=== PATIENT | female | born 2005 | race Two or more races ===

== ENCOUNTER 2024-08-10 21:00 | Inpatient (IN) | payer OTHER ==
[2024-08-10 22:05] VITALS: BMI 16.2
[2024-08-10] MEDS ORDERED: IBUPROFEN 400 MG TABLET (FP) PO PRN (22:24)
[2024-08-10] MEDS ORDERED: ACETAMINOPHEN 325 MG TABLET (FP) PO PRN (22:24)
[2024-08-10] MEDS ORDERED: LOPERAMIDE HCL 2 MG CAPSULE PO PRN (22:24)
[2024-08-10] MEDS ORDERED: NALOXONE (NARCAN) HCL 4 MG/0.1 ML SPRAY NS PRN (22:24)
[2024-08-10] MEDS ORDERED: BISMUTH SUBSALICYLATE 524 MG/30 ML PO PRN (22:24)
[2024-08-10] MEDS ORDERED: POLYETHYLENE GLYCOL (HEALTHYLAX) 3350 17 GM PACKET PO PRN (22:24)
[2024-08-10] MEDS ORDERED: MAG HYDROX/AL HYDROX/SIMETH 30 ML UNIT-DOSE CUP PO PRN (22:24)
[2024-08-10] MEDS ORDERED: guaiFENesin 600 MG TABLET.ER (FP) PO PRN (22:24)
[2024-08-10] MEDS ORDERED: BENZOCAINE/MENTHOL (CHLORASEPTIC ) LOZENGE MM PRN (22:24)
[2024-08-10] MEDS ORDERED: NICOTINE POLACRILEX 2 MG GUM BUC PRN (22:24)
[2024-08-10] MEDS ORDERED: DICYCLOMINE HCL 10 MG CAPSULE PO PRN (22:24)
[2024-08-10] MEDS ORDERED: IBUPROFEN 600 MG TABLET (FP) PO PRN (22:24)
[2024-08-10] MEDS ORDERED: BENZONATATE 200 MG CAPSULE PO PRN (22:24)
[2024-08-10] MEDS ORDERED: MAGNESIUM HYDROX 2400MG/30ML ORAL SUSPENSION 30 ML CUP PO PRN (22:24)
[2024-08-10] MEDS: METHOCARBAMOL 500 MG TABLET PO PRN (23:34)
[2024-08-10] MEDS: ONDANSETRON *ODT* 4 MG TABLET SL PRN (23:35)
[2024-08-11] MEDS: hydrOXYzine PAMOATE 25 MG CAPSULE (FP) PO PRN (00:50)
[2024-08-11] MEDS: BUPRENORPHINE/NALOXONE 4 MG/1 MG FILM PACKET SL SCH (05:55)
[2024-08-11] MEDS ORDERED: BUPRENORPHINE/NALOXONE 4 MG/1 MG FILM PACKET SL SCH (06:00)
[2024-08-11] MEDS: NICOTINE 14 MG/24 HOURS TOPICAL PATCH TD SCH (09:37)
[2024-08-11] MEDS: PRENATAL VITAMINS W/ FOLIC ACID TABLET (FP) PO SCH (09:37)
[2024-08-11 11:15] LABS: HEMATOCRIT 39.3 % (32.4-45.2); HEMOGLOBIN 13.1 GM/dL (10.7-15.3); MCH 28.6 pg (25.7-33.7); MCHC 33.3 g/dl (32.0-36.0); MEAN CELL VOLUME 86.1 fl (80-96); MEAN PLT VOLUME 9.1 fl (7.5-11.1); PLATELET COUNT 271 10^3/uL (134-434); RBC 4.56 M/mm3 (3.60-5.2); RDW 12.7 % (11.6-15.6)
[2024-08-11 11:18] LABS: CHLORIDE 98 mmol/L (98-107); POTASSIUM 3.6 mmol/L (3.5-5.1); SODIUM 136 mmol/L (136-145)
[2024-08-11 11:21] LABS: CALCIUM 9.7 mg/dL (8.5-10.1)
[2024-08-11 11:22] LABS: ALBUMIN 4.3 g/dl (3.4-5.0); ANION GAP 8 mmol/L (4-13); BLOOD UREA NITROGEN 16.8 mg/dL (7-18); CO2 30 mmol/L (21-32); GLUCOSE,RANDOM 92 mg/dL (74-106)
[2024-08-11 11:25] LABS: CREATININE 0.7 mg/dL (0.55-1.3); SGOT/AST 13 U/L (15-37); SGPT/ALT 15 U/L (13-61)
[2024-08-11 11:26] LABS: BILIRUBIN,TOTAL 1.2 mg/dL (0.2-1); TOT PROT 7.9 g/dl (6.4-8.2)
[2024-08-11 11:27] LABS: ALK PHOS 76 U/L (45-117)
[2024-08-11] MEDS ORDERED: MELATONIN 5 MG TABLETS PO SCH (22:00)
[2024-08-11] MEDS: SUVOREXANT 5 MG TABLET PO PRN (22:30)
[2024-08-11] MEDS: THIAMINE 100 MG TABLET PO SCH (22:30)
[2024-08-12] MEDS ORDERED: BUPRENORPHINE/NALOXONE 8 MG/2 MG FILM PACKET SL ONE (06:00)
[2024-08-12 07:06] VITALS: RESP 16
[2024-08-12 11:57] VITALS: BP 94/62; PULSE 91; TEMP 97.8
[2024-08-12] MEDS: NALOXONE (NYS OPIOID OVERDOSE PROGRAM) 4 MG/0.1 ML SPRAY NS SCH (12:14)
== END 2024-08-12 11:10 | disposition home or self-care (01) | DRG 773 ==
LOC: YASAS 21:00 → Y6N 22:59
PROVIDERS: ADMIT Allergy & Immunology; ATTEND Surgery
PROC: HZ2ZZZZ Detoxification Services for Substance Abuse Treatment (ICD-10-PCS; principal; 2024-08-10)
DX: F11.23 Opioid dependence with withdrawal (principal); F12.20 Cannabis dependence, uncomplicated; F17.290 Nicotine dependence, other tobacco product, uncomplicated; F19.280 Other psychoactive substance dependence with psychoactive substance-induced anxiety disorder; F19.24 Other psychoactive substance dependence with psychoactive substance-induced mood disorder
CPT/HCPCS: 36415; 80053; 80305; 80307; 81025; 85027; 86780; 93005; 93010; Q0162

== ENCOUNTER 2024-11-15 13:51 | Inpatient (IN) | payer OTHER ==
[2024-11-15] MEDS ORDERED: BISMUTH SUBSALICYLATE 524 MG/30 ML PO PRN (15:34)
[2024-11-15] MEDS ORDERED: DICYCLOMINE HCL 10 MG CAPSULE PO PRN (15:34)
[2024-11-15] MEDS ORDERED: NALOXONE (NARCAN) HCL 4 MG/0.1 ML SPRAY NS PRN (15:34)
[2024-11-15] MEDS ORDERED: guaiFENesin 600 MG TABLET.ER (FP) PO PRN (15:34)
[2024-11-15] MEDS ORDERED: MAG HYDROX/AL HYDROX/SIMETH 30 ML UNIT-DOSE CUP PO PRN (15:34)
[2024-11-15] MEDS ORDERED: POLYETHYLENE GLYCOL (HEALTHYLAX) 3350 17 GM PACKET PO PRN (15:34)
[2024-11-15] MEDS ORDERED: BENZONATATE 200 MG CAPSULE PO PRN (15:34)
[2024-11-15] MEDS ORDERED: LOPERAMIDE HCL 2 MG CAPSULE PO PRN (15:34)
[2024-11-15] MEDS ORDERED: IBUPROFEN 600 MG TABLET (FP) PO PRN (15:34)
[2024-11-15] MEDS ORDERED: BENZOCAINE/MENTHOL (CHLORASEPTIC ) LOZENGE MM PRN (15:34)
[2024-11-15] MEDS ORDERED: NICOTINE POLACRILEX 2 MG GUM BUC PRN (15:34)
[2024-11-15] MEDS ORDERED: MAGNESIUM HYDROX 2400MG/30ML ORAL SUSPENSION 30 ML CUP PO PRN (15:34)
[2024-11-15] MEDS ORDERED: IBUPROFEN 400 MG TABLET (FP) PO PRN (15:34)
[2024-11-15] MEDS ORDERED: methaDONE HCL 10 MG TABLET (FOR DETOX USE ONLY) PO PRN (15:40)
[2024-11-15] MEDS ORDERED: cloNIDine HCL 0.1 MG TABLET PO PRN (15:40)
[2024-11-15 15:44] VITALS: BMI 15.9
[2024-11-15] MEDS ORDERED: methaDONE HCL 10 MG TABLET (FOR DETOX USE ONLY) ONE (17:06)
[2024-11-15] MEDS: methaDONE HCL 10 MG TABLET (FOR DETOX USE ONLY) PO ONE (17:09)
[2024-11-15] MEDS: methaDONE HCL 10 MG TABLET PO ONE (17:20)
[2024-11-15] MEDS ORDERED: methaDONE HCL 10 MG TABLET PO PRN (17:36)
[2024-11-15] MEDS: cloNIDine HCL 0.1 MG TABLET PO SCH (19:21)
[2024-11-15] MEDS: ONDANSETRON *ODT* 4 MG TABLET SL PRN (20:47)
[2024-11-15] MEDS: THIAMINE 100 MG TABLET PO SCH (21:14)
[2024-11-15] MEDS: MELATONIN 5 MG TABLETS PO SCH (21:14)
[2024-11-16] MEDS: METHOCARBAMOL 500 MG TABLET PO PRN (10:38)
[2024-11-16] MEDS: methaDONE HCL 10 MG TABLET (FOR DETOX USE ONLY) PO ONE (10:38)
[2024-11-16] MEDS: PRENATAL VITAMINS W/ FOLIC ACID TABLET (FP) PO SCH (10:38)
[2024-11-16] MEDS ORDERED: ONDANSETRON *ODT* 4 MG TABLET SL PRN (10:45)
[2024-11-16 11:49] LABS: HEMATOCRIT 36.8 % (32.4-45.2); HEMOGLOBIN 12.5 GM/dL (10.7-15.3); MCH 28.6 pg (25.7-33.7); MEAN CELL VOLUME 84.2 fl (80-96); PLATELET COUNT 255 10^3/uL (134-434); RBC 4.37 M/mm3 (3.60-5.2); RDW 13.2 % (11.6-15.6); WHITE BLOOD COUNT 12.5 K/mm3 (4.0-10.0)
[2024-11-16 12:05] LABS: CHLORIDE 100 mmol/L (98-107); POTASSIUM 3.8 mmol/L (3.5-5.1); SODIUM 135 mmol/L (136-145)
[2024-11-16 12:08] LABS: ALBUMIN 4.4 g/dl (3.4-5.0); ANION GAP 10 mmol/L (4-13); CALCIUM 9.8 mg/dL (8.5-10.1); CO2 25 mmol/L (21-32); GLUCOSE,RANDOM 86 mg/dL (74-106)
[2024-11-16 12:10] LABS: SGOT/AST 14 U/L (15-37); SGPT/ALT 13 U/L (13-61)
[2024-11-16 12:11] LABS: CREATININE 0.6 mg/dL (0.55-1.3)
[2024-11-16 12:12] LABS: BILIRUBIN,TOTAL 1.2 mg/dL (0.2-1); TOT PROT 7.9 g/dl (6.4-8.2)
[2024-11-16 12:13] LABS: ALK PHOS 73 U/L (45-117)
[2024-11-16] MEDS ORDERED: TRIMETHOBENZAMIDE HCL 200MG/2ML INJ IM PRN (15:40)
[2024-11-16] MEDS: hydrOXYzine PAMOATE 25 MG CAPSULE (FP) PO PRN (17:45)
[2024-11-16 21:16] VITALS: RESP 16
[2024-11-16] MEDS: SUVOREXANT 10 MG TABLET PO PRN (22:19)
[2024-11-17] MEDS ORDERED: cloNIDine HCL 0.1 MG TABLET PO PRN
[2024-11-17] MEDS: ACETAMINOPHEN 325 MG TABLET (FP) PO PRN (05:39)
[2024-11-17 09:02] VITALS: BP 106/76; PULSE 99; TEMP 97.6
[2024-11-17] MEDS ORDERED: methaDONE 40 MG, methaDONE 10 MG PO ONE (10:00)
[2024-11-18] MEDS ORDERED: methaDONE HCL 10 MG TABLET (FOR DETOX USE ONLY) PO ONE (10:00)
[2024-11-19] MEDS ORDERED: methaDONE 40 MG, methaDONE 20 MG PO ONE (10:00)
[2024-11-20] MEDS ORDERED: methaDONE HCL 10 MG TABLET (FOR DETOX USE ONLY) PO ONE (10:00)
== END 2024-11-17 09:57 | disposition home or self-care (01) | DRG 773 ==
LOC: YASAS 13:51 → Y6N 16:52
PROVIDERS: ADMIT Allergy & Immunology; ATTEND Allergy & Immunology
PROC: HZ2ZZZZ Detoxification Services for Substance Abuse Treatment (ICD-10-PCS; principal; 2024-11-15)
DX: F11.23 Opioid dependence with withdrawal (principal); F12.20 Cannabis dependence, uncomplicated; F17.210 Nicotine dependence, cigarettes, uncomplicated; F19.282 Other psychoactive substance dependence with psychoactive substance-induced sleep disorder; F19.280 Other psychoactive substance dependence with psychoactive substance-induced anxiety disorder; F19.24 Other psychoactive substance dependence with psychoactive substance-induced mood disorder; G47.00 Insomnia, unspecified
CPT/HCPCS: 36415; 80053; 80305; 80307; 81025; 85027; 86780; 93005; 93010; Q0162